=== PATIENT | male | born 1950 | race Caucasian/White ===

== ENCOUNTER 2016-07-11 22:30 | Inpatient (IN) | payer MEDICARE, OTHER ==
[~2016-07-11] VITALS: Ht 175.3 cm; Wt 91.4 kg
[~2016-07-11 22:30] MED LIST: ASPI81TA82 PO; CARV12.52 PO; FURO10S PO; HYDR100T2 PO; LEVA500T PO; LEVO.025 PO; METR-1 PO; MULTCAP14 PO; TRUSMIS52; Z.0.WHEELELR; ZOCO40TA PO; [UNRECOGNIZED DRUG - CODE] SQ
[2016-07-11 22:32] VITALS: BP 182/106; PULSE 71; RESP 16; TEMP 97.8; O2SAT 96
[2016-07-11 23:27] VITALS: BP 181/93; PULSE 89; RESP 18; O2SAT 92
[2016-07-11] MEDS ORDERED: CALC667T PO (23:40)
[2016-07-11] MEDS ORDERED: CARV25TA PO (23:40)
[2016-07-11] MEDS ORDERED: LEVO25TA4 PO (23:40)
[2016-07-11] MEDS ORDERED: SIMV20TA PO (23:40)
[2016-07-11] MEDS ORDERED: RANI1TAB5 PO (23:40)
[2016-07-11] MEDS ORDERED: DIAL800T PO (23:40)
[2016-07-11] MEDS ORDERED: VITA100036 PO (23:40)
[2016-07-11] MEDS ORDERED: ASPI1TAB69 PO (23:40)
[2016-07-12] VITALS (9 sets, daily range): BP systolic 103–179; BP diastolic 56–91; PULSE 60–84; RESP 18–22; TEMP 97.2–98; O2SAT 93–99
[2016-07-12] MEDS ORDERED: SODIUM CHLORIDE 0.9% FLUSH 10 ML FLUSH IVF PRN (00:15)
[2016-07-12 00:21] LABS: AUTOMATED NEUTROPHIL # 6.8 TH/MM3 (1.8-7.7); BASOPHIL # 0.1 TH/MM3 (0-0.2); EOSINOPHIL # 0.4 TH/MM3 (0-0.4); EOSINOPHIL % 3.8 % (0.0-4.0); HEMO FLAGS DIFF FINAL; LYMPH % 14.7 % (9.0-44.0); LYMPHOCYTE # 1.4 TH/MM3 (1.0-4.8); MEAN CELL VOLUME 90.2 FL (80.0-100.0); MEAN CORPUSCULAR HEMOGLOBIN 29.4 PG (27.0-34.0); MEAN CORPUSCULAR HGB CONC 32.6 % (32.0-36.0); MONO % 9.2 % (0.0-8.0); NEUT % 71.3 % (16.0-70.0); PLATELET COUNT 191 TH/MM3 (150-450); RED BLOOD COUNT 3.21 MIL/MM3 (4.50-5.90); RED CELL DISTRIBUTION WIDTH 15.5 % (11.6-17.2); WHITE BLOOD COUNT 9.5 TH/MM3 (4.0-11.0)
[2016-07-12 00:45] LABS: ALT (GPT) 21 U/L (12-78); ANION GAP 12 MEQ/L (5-15); AST (GOT) 18 U/L (15-37); BICARBONATE 28.9 MEQ/L (21.0-32.0); BLOOD UREA NITROGEN 71 MG/DL (7-18); CHLORIDE 96 MEQ/L (98-107); GLOMERULAR FILTRATION RATE 4 ML/MIN (>89); SODIUM (NA) 137 MEQ/L (136-145)
[2016-07-12 00:47] LABS: ALKALINE PHOSPHATASE 89 U/L (45-117); TOTAL BILIRUBIN ADULT 0.4 MG/DL (0.2-1.0)
--- NOTE | 2016-07-12 00:49 | PD ---
HPI Chief Complaint: Lump, Cyst, Hernia Time Seen by Provider: 23:33 Travel History International Travel<30 days: No Contact w/Intl Traveler<30days: No Traveled to known affect area: No History of Present Illness HPI This is a 66-year-old male who is a peritoneal dialysis patient who presents to the emergency department with increasing swelling and pain in his scrotum and penis is been going on for 2 days, constant, moderate severity. He says yesterday he went to do dialysis and put in 2000 cc of diasylate and his yield was only 800 cc. Ever since then he's had increasing pain and swelling in his scrotum. He says that earlier this year he had a bilateral inguinal hernia repair and prior to that his symptoms of been very similar. He says he has been short of breath for one month which has been increasing and he has had a nonproductive cough which seems to be getting worse. He is here vacationing from [place] work for 5 weeks. PFSH Past Medical History Anemia: Yes Asthma: No Autoimmune Disease: No Anxiety: No Depression: No Heart Rhythm Problems: No Cancer: No Cardiovascular Problems: Yes High Cholesterol: Yes Chemotherapy: No Chest Pain: No Congestive Heart Failure: Yes COPD: No Diabetes: Yes (diet controlled) Patient Takes Glucophage: No Genitourinary: Yes Hypertension: Yes Immune Disorder: No Kidney Stones: No Musculoskeletal: No Neurologic: No Psychiatric: No Reproductive: No Respiratory: Yes Radiation Therapy: No Renal Failure: Yes Sickle Cell Disease: No Sleep Apnea: No Thyroid Disease: Yes (hypothyroidism) Influenza Vaccination: No Past Surgical History Abdominal Surgery: Yes (BILATERAL INGUINAL HERNIA) Cardiac Surgery: Yes (MITRAL VALVE REPAIR) Tonsillectomy: Yes Social History Alcohol Use: No Tobacco Use: No Substance Use: No Allergies-Medications (Allergen,Severity, Reaction): Coded Allergies: No Known Allergies (Unverified , 07/11/16) Reported Meds & Prescriptions Reported Meds & Active Scripts Active Reported Dialyvite 800/Ultra D (Multiple Vitamins W/ Minerals) 1 Tab 1 Tab PO DAILY Calcium Acetate (Phosphate Binder) 667 Mg Tab 2,668 Mg PO TID Ranitidine 75 (Ranitidine HCl) 75 Mg Tab 150 Mg PO HS Take 30 to 60 minutes before eating food or drinking beverages that cause heartburn. Vitamin D3 (Cholecalciferol) 1,000 Unit Cap 1,000 Units PO DAILY Levothyroxine (Levothyroxine Sodium) 25 Mcg Tab 25 Mcg PO HS Simvastatin 20 Mg Tab 20 Mg PO DAILY Carvedilol 25 Mg Tab 25 Mg PO BID Aspirin 81 Mg Tabdr 81 Mg PO DAILY Review of Systems Except as stated in HPI: all other systems reviewed are Neg Physical Exam Narrative GENERAL:Well appearing, no acute distress SKIN: Focused skin assessment warm and dry. HEAD: Atraumatic. Normocephalic. EYES: Pupils equal and round. No injection or drainage. ENT: Moist mucous membranes NECK: Trachea midline. CARDIOVASCULAR: Regular rate and rhythm. No murmur appreciated. RESPIRATORY: Tachypneic, coarse breath sounds in the bases bilaterally GASTROINTESTINAL: Abdomen soft, non-tender, nondistended. : Marked edema of the scrotum and penis MUSCULOSKELETAL: No obvious deformities. NEUROLOGICAL: Awake and alert. No obvious cranial nerve deficits. Moving all extremities. PSYCHIATRIC: Appropriate mood and affect; insight and judgment normal. Data Data Last Documented VS Vital Signs Date Time Temp Pulse Resp B/P Pulse Ox O2 Delivery O2 Flow Rate FiO2 07/12/16 01:01 84 22 171/91 96 Nasal Cannula 2 07/11/16 22:32 97.8 Orders Complete Blood Count With Diff (07/12/16 00:02) Comprehensive Metabolic Panel (07/12/16 00:02) B-Type Natriuretic Peptide (07/12/16 00:02) D-Dimer (07/12/16 00:02) Iv Access Insert/Monitor (07/12/16 00:02) Electrocardiogram (07/12/16 00:02) Ecg Monitoring (07/12/16 00:02) Oximetry (07/12/16 00:02) Oxygen Administration (07/12/16 00:02) Sodium Chloride 0.9% Flush (Ns Flush) (07/12/16 00:15) Us Testicles W Doppler (07/12/16 ) Chest, Single Ap (07/12/16 ) Ventilation & Perfusion Scan (07/12/16 ) Admit To Inpatient (07/12/16 ) Vital Signs (Adult) Q4H (07/12/16 01:32) Activity Oob With Assistance (07/12/16 01:32) Retail Delivery Driver / Telemetry .CONTINUOUS (07/12/16 01:32) Intake + Output MADISYN.QSHIFT (07/12/16 01:32) Diet Renal (07/12/16 Breakfast) Sodium Chloride 0.9% Flush (Ns Flush) (07/12/16 01:45) Sodium Chloride 0.9% Flush (Ns Flush) (07/12/16 09:00) Basic Metabolic Panel (Bmp) (07/13/16 06:00) Complete Blood Count With Diff (07/13/16 06:00) Pt Request For Service (07/12/16 01:32) Case Management Consult (07/12/16 01:32) Naloxone Inj (Narcan Inj) (07/12/16 01:45) Inpatient Certification (07/12/16 ) Consult Nephrology (07/12/16 ) Admit Order (Ed Use Only) (07/12/16 01:39) Labs Laboratory Tests Test 07/12/16 00:00 White Blood Count 9.5 TH/MM3 Red Blood Count 3.21 MIL/MM3 Hemoglobin 9.4 GM/DL Hematocrit 29.0 % Mean Corpuscular Volume 90.2 FL Mean Corpuscular Hemoglobin 29.4 PG Mean Corpuscular Hemoglobin 32.6 % Concent Red Cell Distribution Width 15.5 % Platelet Count 191 TH/MM3 Mean Platelet Volume 8.6 FL Neutrophils (%) (Auto) 71.3 % Lymphocytes (%) (Auto) 14.7 % Monocytes (%) (Auto) 9.2 % Eosinophils (%) (Auto) 3.8 % Basophils (%) (Auto) 1.0 % Neutrophils # (Auto) 6.8 TH/MM3 Lymphocytes # (Auto) 1.4 TH/MM3 Monocytes # (Auto) 0.9 TH/MM3 Eosinophils # (Auto) 0.4 TH/MM3 Basophils # (Auto) 0.1 TH/MM3 CBC Comment DIFF FINAL Differential Comment D-Dimer Quantitative (PE/DVT) 3.32 MG/L FEU Sodium Level 137 MEQ/L Potassium Level 4.0 MEQ/L Chloride Level 96 MEQ/L Carbon Dioxide Level 28.9 MEQ/L Anion Gap 12 MEQ/L Blood Urea Nitrogen 71 MG/DL Creatinine 12.34 MG/DL Estimat Glomerular Filtration 4 ML/MIN Rate Random Glucose 101 MG/DL Calcium Level 9.4 MG/DL Total Bilirubin 0.4 MG/DL Aspartate Amino Transf 18 U/L (AST/SGOT) Alanine Aminotransferase 21 U/L (ALT/SGPT) Alkaline Phosphatase 89 U/L B-Type Natriuretic Peptide 3305 PG/ML Total Protein 6.5 GM/DL Albumin 2.7 GM/DL MDM Medical Decision Making Medical Screen Exam Complete: Yes Emergency Medical Condition: Yes Interpretation(s) Afebrile, no tachycardia, hypertensive Anemia Creatinine is 12 BNP is 3300 Last 24 hours Impressions Scrotum Ultrasound 07/12/16 0000 Signed Impressions: Service Date/Time: Tuesday, July 12, 2016 01:05 - CONCLUSION: 1. Small simple hydroceles bilaterally with diffuse thickening of the scrotum. 2. Questionable bilateral inguinal hernias. Kenneth Valderrama Jr., MD Chest X-Ray 07/12/16 0000 Signed Impressions: Service Date/Time: Tuesday, July 12, 2016 00:23 - CONCLUSION: Bilateral pleural effusions and bilateral pulmonary infiltrates. Kenneth Valderrama Jr., MD Differential Diagnosis Volume overload, pulmonary embolism, pneumonia, congestive heart failure, inguinal hernias, scrotal edema Narrative Course This is a 66-year-old male who presented to the emergency department primarily concerned because he thought his inguinal hernias had recurred and he has increasing edema in the scrotum and penis. Patient was placed on a monitor and an IV was established. He was found to be hypoxic and tachypneic, 88% on room air. Chest x-ray demonstrates bilateral pleural effusions. D-dimer was 3. VQ scan will be obtained. BNP is 3300. I think his presentation is consistent with volume overload. I suspect both his increasing scrotal edema and his respiratory symptoms are related to volume overload. I think he requires admission and nephrology consultation. I spoke to Dr. Avendano overnight and he recommended we diuresis the patient with 80 of IV Lasix and the peritoneal dialysis nurses will see him in the morning. Physician Communication Physician Communication Discussed with Dr. Avendano and Dr. Barker Diagnosis Primary Impression: Volume overload Qualified Code: E87.70 - Hypervolemia, unspecified hypervolemia type Admitting Information Admitting Physician Requests: Admit Meron Hall MD July 12, 2016 00:49
--- NOTE | 2016-07-12 01:09 | RADRPT ---
EXAM DATE/TIME: 07/12/2016 00:23 [facility] COMPARISON: No previous studies available for comparison. INDICATIONS : Abdominal pain. MEDICAL HISTORY : Hernia SURGICAL HISTORY : Valve repair. ENCOUNTER: Initial ACUITY: 1 day PAIN SCORE: 0/10 LOCATION: Bilateral chest FINDINGS: A single portable frontal view the chest shows bilateral pulmonary infiltrates. This is most pronounc ed within the right lung base. Small bilateral pleural effusions. Heart is normal in size. Prosthetic heart valve. Median sternotomy wires. CONCLUSION: Bilateral pleural effusions and bilateral pulmonary infiltrates. Kenneth Valderrama Jr., MD on July 12, 2016 at 1:06 Board Certified Radiologist. This report was verified electronically.
[2016-07-12] MEDS ORDERED: NALOXONE HCL 0.4 MG/ML AMP IV PRN (01:45)
[2016-07-12] MEDS ORDERED: SODIUM CHLORIDE 0.9% FLUSH 10 ML FLUSH IV FLUSH PRN ×2 (01:45→09:15)
--- NOTE | 2016-07-12 01:56 | RADRPT ---
EXAM DATE/TIME: 07/12/2016 01:05 [facility] COMPARISON: No previous studies available for comparison. INDICATIONS : Bilateral testicle swelling. MEDICAL HISTORY : Hypertension. Diabetic. Kidney failure. Peritoneal dialysis. Hernia. SURGICAL HISTORY : Tonsillectomy. Mitral valve repair. Inguinal hernia repair 02/2016. ENCOUNTER: Initial ACUITY: 1 day PAIN SCORE: 0/10 LOCATION: Bilateral testicle. MEASUREMENTS: RIGHT TESTICLE: 4.2 x 2.8 x 2.8cm LEFT TESTICLE: 3.0 x 3.2 x 2.5cm FINDINGS: RIGHT TESTICLE: Homogeneous echotexture without intra or extratesticular mass. Blood flow is symmetric and within no rmal limits. A small simple hydrocele. No varicocele. Epididymis is within normal limits. Questionab le hernia. LEFT TESTICLE: Homogeneous echotexture without intra or extratesticular mass. Blood flow is symmetric and within no rmal limits. Small simple hydrocele. No varicocele. Epididymis is within normal limits. Questionable hernia. SCROTUM: Diffuse thickening of the scrotum. CONCLUSION: 1. Small simple hydroceles bilaterally with diffuse thickening of the scrotum. 2. Questionable bilateral inguinal hernias. Kenneth Valderrama Jr., MD on July 12, 2016 at 1:51 Board Certified Radiologist. This report was verified electronically.
[2016-07-12] MEDS ORDERED: FUROSEMIDE 100 MG/10 ML VIAL IV PUSH ONE (02:15)
--- NOTE | 2016-07-12 03:08 | RADRPT ---
EXAM DATE/TIME: 07/12/2016 02:27 [facility] COMPARISON: CHEST SINGLE AP, July 12, 2016, 0:23. INDICATIONS : Shortness of breath for 1 month and pain and swelling in scrotum. DOSE: 8.7 mCi Tc99m MAA IV 1.2 mCi Tc99m DTPA aerosol MEDICAL HISTORY : Congestive hearrt failure. Hypercholesterolemia. Renal failure, chronic. Hypertension. SURGICAL HISTORY : Inguinal hernia repair. Tonsillectomy. ENCOUNTER: Initial ACUITY: 1 month PAIN SCALE: 0/10 LOCATION: chest TECHNIQUE: Following five minutes of tidal breathing of DTPA aerosol, planar images of the lungs were performed in eight projections. The patient was then injected with MAA, and eight-view perfusion scan was perf ormed. FINDINGS: There is a homogeneous pattern of aerosol delivery to the periphery of both lungs. No focal ventilat ory defects are seen. The perfusion lung scan demonstrates a homogenous pattern of uptake in both lungs. No segmental or s ubsegmental defects are seen. CONCLUSION: Normal examination. Kenneth Valderrama Jr., MD on July 12, 2016 at 3:06 Board Certified Radiologist. This report was verified electronically.
--- NOTE | 2016-07-12 04:19 | HHI.HP ---
HPI Service [facility] Primary Care Physician Non-Staff Admission Diagnosis volume overload Diagnoses: Travel History International Travel<30 Days: No Contact w/Intl Traveler <30 Da: No Traveled to Known Affected Are: No History of Present Illness History from patient, his , ER physician communication, and review of medical record. Patient reported that he has end-stage renal disease on peritoneal dialysis. He is visiting here from [place] and arrived here about 3 weeks ago. He states he was doing prior to the dialysis at home with his as usual but Tuesday night, they noted that he was only getting about 858 mL of fluid when he should be getting out 2000 mL. They waited for about an hour and tried to fix the catheter but finally had 2 bypass it. In the morning, patient noted that his scrotum was swelling. No significant pain in the scrotum but reports of pressure build up there. He also reports her shortness of breath. Denies any chest tightness or pains. Denies fever. Reports of cough which is dry cough with no sputum production for the past 2 weeks. Patient states that about 3 weeks ago when he was on autotrain coming here from [place], he also missed his pertinent dialysis and similar episode of shortness of breath happened then as well. Apart from the above, patient denies any recent fevers/nausea/vomiting/diarrhea. He denies any blood in his stool or urine. He reports he still makes urine. Denies any syncopal episodes or dizziness. Review of Systems Except as stated in HPI: all other systems reviewed are Neg Past Family Social History Past Medical History dm- diet controlled htn- off meds now due to low bp with dialysis chf esrd on peritoneal dialysis lui barrios foot bilaterally Past Surgical History foot surgery - 2 yrs ago - right hernia repair - feb 2016- 4 yrs ago, mitral valve repair - NOT replacement- was only on coumadin for couple of months post surgery tonsilectomy Allergies: Coded Allergies: No Known Allergies (Unverified , 07/12/16) Family History none Social History no smoking no drinking 7 yrs now, but was social drinker before no drugs still driving visiting here from [place] - came down the day after Easter - 06/23/16 Physical Exam Vital Signs Vital Signs Date Time Temp Pulse Resp B/P Pulse Ox O2 Delivery O2 Flow Rate FiO2 07/12/16 03:36 73 20 166/88 99 Nasal Cannula 2 07/12/16 01:01 84 22 171/91 96 Nasal Cannula 2 07/12/16 00:58 88 Nasal Cannula 2 07/11/16 23:27 89 18 181/93 92 Room Air 07/11/16 22:32 97.8 71 16 182/106 96 Room Air Physical Exam GENERAL: This is a well-nourished, well-developed patient, in no apparent distress. SKIN: No rashes, ecchymoses or lesions. Cool and dry. Pallor present HEAD: Atraumatic. Normocephalic. No temporal or scalp tenderness. EYES: No scleral icterus. No injection or drainage. ENT: Nose without bleeding, purulent drainage or septal hematoma. Airway patent. NECK: Trachea midline. No JVD CARDIOVASCULAR: Regular rate and rhythm without murmurs, gallops, or rubs. RESPIRATORY: Bilateral basilar rales up to mid lung. GASTROINTESTINAL: Abdomen soft, non-tender, nondistended.No guarding. MUSCULOSKELETAL: Extremities without clubbing, cyanosis, or edema. No calf tenderness. Bilateral Charcot Katherin foot syndrome NEUROLOGICAL: Awake and alert. Motor and sensory grossly within normal limits. Normal speech. Laboratory Laboratory Tests Test 07/12/16 00:00 White Blood Count 9.5 Red Blood Count 3.21 Hemoglobin 9.4 Hematocrit 29.0 Mean Corpuscular Volume 90.2 Mean Corpuscular Hemoglobin 29.4 Mean Corpuscular Hemoglobin 32.6 Concent Red Cell Distribution Width 15.5 Platelet Count 191 Mean Platelet Volume 8.6 Neutrophils (%) (Auto) 71.3 Lymphocytes (%) (Auto) 14.7 Monocytes (%) (Auto) 9.2 Eosinophils (%) (Auto) 3.8 Basophils (%) (Auto) 1.0 Neutrophils # (Auto) 6.8 Lymphocytes # (Auto) 1.4 Monocytes # (Auto) 0.9 Eosinophils # (Auto) 0.4 Basophils # (Auto) 0.1 CBC Comment DIFF FINAL Differential Comment D-Dimer Quantitative (PE/DVT) 3.32 Sodium Level 137 Potassium Level 4.0 Chloride Level 96 Carbon Dioxide Level 28.9 Anion Gap 12 Blood Urea Nitrogen 71 Creatinine 12.34 Estimat Glomerular Filtration 4 Rate Random Glucose 101 Calcium Level 9.4 Total Bilirubin 0.4 Aspartate Amino Transf 18 (AST/SGOT) Alanine Aminotransferase 21 (ALT/SGPT) Alkaline Phosphatase 89 B-Type Natriuretic Peptide 3305 Total Protein 6.5 Albumin 2.7 Result Diagram: 07/12/16 0000 07/12/16 Imaging Last 48 hours Impressions Scrotum Ultrasound 07/12/16 Signed Impressions: Service Date/Time: Tuesday, July 12, 2016 01:05 - CONCLUSION: 1. Small simple hydroceles bilaterally with diffuse thickening of the scrotum. 2. Questionable bilateral inguinal hernias. Kenneth Valderrama Jr., MD Lung Scan-VQ Nuclear Medicine 07/12/16 Signed Impressions: Service Date/Time: Tuesday, July 12, 2016 02:27 - CONCLUSION: Normal examination. Kenneth Valderrama Jr., MD Chest X-Ray 07/12/16 Signed Impressions: Service Date/Time: Tuesday, July 12, 2016 00:23 - CONCLUSION: Bilateral pleural effusions and bilateral pulmonary infiltrates. Kenneth Valderrama Jr., MD Assessment and Plan Assessment and Plan Impression: Fluid overloadsecondary to inadequate fluid removal by peritoneal dialysis dm- diet controlled htn- off meds now due to low bp with dialysis chf esrd on peritoneal dialysis charbrian barrios foot bilaterally Plan: Lasix 80 mg IV 1 dose now on. Input/output. Monitor blood pressure closely. Resume home meds. Nephrology was consulted. Will dialyze patient with the peritoneal dialysis in a.m. Follow-up recommendations. DVT prophylaxison heparin. Discussed Condition With patient, , ER MD, pt's nurse Physician Certification 2 Midnight Certification Type: Admission for Inpatient Services Order for Inpatient Services The services are ordered in accordance with Medicare regulations or non- Medicare payer requirements, as applicable. In the case of services not specified as inpatient-only, they are appropriately provided as inpatient services in accordance with the 2-midnight benchmark. Estimated LOS (days): 2 days is the estimated time the patient will need to remain in the hospital, assuming treatment plan goals are met and no additional complications. Post-Hospital Plan: Home Radha Barker MD July 12, 2016 04:19
[2016-07-12] MEDS: HEPARIN SODIUM - SQ 10,000 UNITS/ML VIAL SQ SCH ×3 (06:21→20:51)
[2016-07-12] MEDS: SODIUM CHLORIDE 0.9% FLUSH 10 ML FLUSH IV FLUSH SCH ×2 (09:02→20:52)
[2016-07-12] MEDS: CARVEDILOL 12.5 MG TAB PO SCH ×2 (09:02→20:50)
[2016-07-12] MEDS: PRAVASTATIN SOD 40 MG TAB PO SCH (09:02)
[2016-07-12] MEDS: ASPIRIN EC 81 MG TABEC PO SCH (09:02)
[2016-07-12] MEDS: CALCIUM ACETATE 667 MG CAP PO SCH ×3 (09:03→17:09)
[2016-07-12] MEDS ORDERED: HEPARIN SODIUM - IV 10,000 UNITS/10 ML VIAL XX PRN (10:00)
--- NOTE | 2016-07-12 11:15 | EKG ---
Date Performed: 07/12/2016 Time Performed: 00:55:34 PTAGE: 66 years EKG: Sinus rhythm MODERATE INTRAVENTRICULAR CONDUCTION DELAY NONSPECIFIC T-WAVE ABNORMALITY ABNORMAL ECG NO PREVIOUS TRACING DOCTOR: Franck Vieyra Interpretating Date/Time 07/12/2016 11:13:04
--- NOTE | 2016-07-12 13:32 | MB ---
cc: VIJI ALCOCER MD DATE OF CONSULTATION: 07/12/2016 REASON FOR CONSULTATION End-stage renal disease on peritoneal dialysis, came with fluid overload status. HISTORY OF PRESENT ILLNESS This is a 66-year-old male with past medical history of hypertension, diabetes mellitus, ischemic heart disease, congestive heart failure, end-stage renal disease on peritoneal dialysis, came to the hospital because of fluid retention, swelling and shortness of breath. 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 The patient has been on peritoneal dialysis for a little more than a year. He has been living in [facility] and visiting here. On Tuesday night he noticed that he has no ultrafiltration and his machine was alarming and he noticed more swelling of his legs and scrotal area and shortness of breath on Tuesday which was gradually getting worse so he decided to come to the hospital. He denies any nausea or vomiting. He does not have any constipation. His bowel movement is normal. The fluid was clear according to him. He has mild cough. There is no chest pain. No palpitation. His appetite is normal. He noticed that he has more swelling of his scrotal area and also his legs. He passed very small amount of urine. There is no history of fever. No chest pain or palpitations. PAST MEDICAL HISTORY 1. Hypertension. 2. Diabetes mellitus. 3. Ischemic heart disease. 4. Congestive heart failure. 5. Chronic anemia. 6. End-stage renal disease on peritoneal dialysis. PAST SURGICAL HISTORY 1. Bilateral inguinal hernia repair. 2. History of PD catheter placement for surgery 2 years ago. 3. Mitral valve repair 4 years ago. 4. Tonsillectomy. REVIEW OF SYSTEMS The patient denies any history of fever. No sore throat. He has cough and worsening shortness of breath especially on exertion. There is no chest pain. No palpitation. No headache, dizziness and no abdominal pain. No history of diarrhea or constipation. No nausea, vomiting. Appetite is normal. The fluid has been clear. He noticed more swelling of his scrotal area and his legs. There is no blood in the PD fluid and it is not cloudy. SOCIAL HISTORY The patient is . There is no history of smoking or alcoholism. FAMILY HISTORY Family history is noncontributory. ALLERGIES NO KNOWN DRUG ALLERGIES. MEDICATIONS Currently he is on: 1. Coreg 25 mg b.i.d. 2. Aspirin 81 mg once a day. 3. Pravachol 40 mg daily. 4. Synthroid 25 mcg h.s. 5. Pepcid 20 mg q.h.s. 6. Aspirin 5000 units q. 8-hours. 7. PhosLo 2668 mg t.i.d. 8. Narcan as needed. PHYSICAL EXAMINATION GENERAL: On examination the patient is awake, alert. He is not in acute distress. VITAL SIGNS: His last blood pressure is 179/88, temperature is 98, oxygen saturation 99%. HEENT: Pupils equally reacting to light. Nonicteric sclerae. Conjunctivae pale. NECK: Supple. JVD slightly elevated. LUNGS: The patient has bilateral decreased air entry with basilar rales and scattered wheezing. HEART: S1, S2, regular rhythm. ABDOMEN: Abdomen is distended, soft, lax. The PD catheter is in place. There is no tenderness. The scrotal area is swollen. There is no redness or tenderness. EXTREMITIES: He has bilateral 1+ leg edema. INVESTIGATION WBC count is 9.5, hemoglobin 9.4, platelet count of 191, sodium is 137. Potassium 4.0, chloride 96, bicarb 28.9, BUN 71, creatinine 12.34, AST, ALT normal, alkaline phosphatase normal. Albumin is 2.7, total protein is 6.5. BNP is 3305. D-dimer is 3.3. IMAGING STUDIES The patient had ultrasound of the scrotal area done which shows small simple hydrocele bilaterally, questionable bilateral inguinal hernias. VQ scan of the lung was done which showed normal examination. Chest x-ray was done which shows bilateral pleural effusion and bilateral pulmonary infiltrate. ASSESSMENT/PLAN 1. Fluid overload status. 2. End-stage renal disease on peritoneal dialysis. 3. Hypertension. 4. Anemia. 5. Generalized edema. The patient has generalized edema and this pleural effusion and scrotal swelling. Will try to get more fluid out by doing peritoneal dialysis and will do one exchange in the daytime. I have already called the dialysis nurse to do one exchange as soon as possible so we can see if he has any ultrafiltration. If there is a problem with ultrafiltration then he will need to do the workup to find out if there is any problem with the catheter. He was given Lasix but he did not pass much urine. Seems like his kidney function is not that great. If things do not improve and the peritoneal catheter is not working, then he probably will need temporary hemodialysis until PD catheter can be fixed. Thank you for the consultation and I will follow the patient while he is in the hospital. MD JOHNNY Gomez/TLL /9:43 AM /1:01 PM
--- NOTE | 2016-07-12 14:21 | HHI.PR ---
Subjective Remarks Follow-up renal failure, fluid overload. The patient states that his dyspnea seems to be improving. No chest pain. Objective Vitals Vital Signs Date Time Temp Pulse Resp B/P Pulse Ox O2 Delivery O2 Flow Rate FiO2 07/12/16 12:00 97.5 60 18 167/77 93 07/12/16 08:00 70 07/12/16 08:00 Nasal Cannula 2.50 07/12/16 08:00 98.0 71 18 179/88 99 07/12/16 04:04 Nasal Cannula 2.00 07/12/16 04:04 74 07/12/16 04:00 97.5 76 18 173/82 95 07/12/16 03:36 73 20 166/88 99 Nasal Cannula 2 07/12/16 01:01 84 22 171/91 96 Nasal Cannula 2 07/12/16 00:58 88 Nasal Cannula 2 07/11/16 23:27 89 18 181/93 92 Room Air 07/11/16 22:32 97.8 71 16 182/106 96 Room Air I/O 07/11/16 07/11/16 07/11/16 07/12/16 07/12/16 07/12/16 07:00 15:00 23:00 07:00 15:00 23:00 Intake Total 100 ml Balance 100 ml Intake Oral 100 ml # Voids 0 # Bowel Movements 0 Result Diagram: 07/12/16 0000 07/12/16 0000 Imaging Last Impressions Scrotum Ultrasound 07/12/16 0000 Signed Impressions: Service Date/Time: Tuesday, July 12, 2016 01:05 - CONCLUSION: 1. Small simple hydroceles bilaterally with diffuse thickening of the scrotum. 2. Questionable bilateral inguinal hernias. Kenneth Valderrama Jr., MD Lung Scan- Nuclear Medicine 07/12/16 0000 Signed Impressions: Service Date/Time: Tuesday, July 12, 2016 02:27 - CONCLUSION: Normal examination. Kenneth Valderrama Jr., MD Chest X-Ray 07/12/16 0000 Signed Impressions: Service Date/Time: Tuesday, July 12, 2016 00:23 - CONCLUSION: Bilateral pleural effusions and bilateral pulmonary infiltrates. Kenneth Valderrama Jr., MD Objective Remarks General: No acute distress. Heart: Regular rate and rhythm. No murmur. Lungs: Bibasilar rales. Breathing is nonlabored. Abdomen: Soft, nontender, nondistended. Extremities: No lower extremity edema. Psych: Alert and oriented. Procedures None Urinary Catheter: No Vascular Central Line Catheter: No A/P Problem List: (1) Volume overload ICD Code: E87.70 Status: Acute (2) Chronic renal failure ICD Code: N18.9 Status: Acute (3) Diabetes mellitus type 2, diet-controlled ICD Code: E11.9 Status: Chronic Assessment and Plan 1. Fluid overload: Secondary to inadequate fluid removal by peritoneal dialysis. Patient was given Lasix. Monitor strict input/output. Appreciate nephrology recommendations. Continue peritoneal dialysis. 2. Diabetes mellitus: Diet-controlled. 3. Hypertension: Not currently on antihypertensive medications. 4. End-stage renal disease: Continue peritoneal dialysis per nephrology. Problem Qualifiers (1) Volume overload: Qualified Code: E87.70 - Hypervolemia, unspecified hypervolemia type Chapito Marks MD July 12, 2016 14:21
[2016-07-12] MEDS: FAMOTIDINE 20 MG TAB PO SCH (20:50)
[2016-07-12] MEDS: LEVOTHYROXINE SODIUM 25 MCG TAB PO SCH (20:50)
[2016-07-13] VITALS: BP 150/84; PULSE 78; RESP 18; TEMP 97.5; O2SAT 96
[2016-07-13] MEDS: HEPARIN SODIUM - SQ 10,000 UNITS/ML VIAL SQ SCH ×3 (05:14→21:36)
[2016-07-13 06:20] VITALS: BP 145/97; PULSE 62; RESP 18; TEMP 97.3; O2SAT 99
[2016-07-13 07:27] LABS: AUTOMATED NEUTROPHIL # 4.3 TH/MM3 (1.8-7.7); BASOPHIL # 0.1 TH/MM3 (0-0.2); EOSINOPHIL # 0.3 TH/MM3 (0-0.4); EOSINOPHIL % 5.1 % (0.0-4.0); HEMATOCRIT 25.2 % (39.0-51.0); HEMO FLAGS DIFF FINAL; LYMPH % 20.7 % (9.0-44.0); LYMPHOCYTE # 1.4 TH/MM3 (1.0-4.8); MEAN CELL VOLUME 89.8 FL (80.0-100.0); MEAN CORPUSCULAR HEMOGLOBIN 30.1 PG (27.0-34.0); MEAN CORPUSCULAR HGB CONC 33.5 % (32.0-36.0); NEUT % 62.2 % (16.0-70.0); PLATELET COUNT 143 TH/MM3 (150-450); RED BLOOD COUNT 2.81 MIL/MM3 (4.50-5.90); RED CELL DISTRIBUTION WIDTH 15.3 % (11.6-17.2); WHITE BLOOD COUNT 6.9 TH/MM3 (4.0-11.0)
[2016-07-13 07:58] LABS: BICARBONATE 26.6 MEQ/L (21.0-32.0); POTASSIUM 3.7 MEQ/L (3.5-5.1)
[2016-07-13 08:00] VITALS: BP 151/78; PULSE 63; PULSE 67; RESP 18; TEMP 97.7; O2SAT 96
[2016-07-13] MEDS: ASPIRIN EC 81 MG TABEC PO SCH (09:11)
[2016-07-13] MEDS: CALCIUM ACETATE 667 MG CAP PO SCH ×3 (09:11→17:26)
[2016-07-13] MEDS: CARVEDILOL 12.5 MG TAB PO SCH ×2 (09:11→21:35)
[2016-07-13] MEDS: PRAVASTATIN SOD 40 MG TAB PO SCH (09:11)
[2016-07-13] MEDS: SODIUM CHLORIDE 0.9% FLUSH 10 ML FLUSH IV FLUSH SCH ×2 (09:12→21:36)
--- NOTE | 2016-07-13 10:48 | HHI.PR ---
Subjective Remarks Follow up fluid overload, renal failure. Patient continues to report scrotal swelling. Also has dyspnea with ambulating to the bathroom. Denies chest pain. Objective Vitals Vital Signs Date Time Temp Pulse Resp B/P Pulse Ox O2 Delivery O2 Flow Rate FiO2 07/13/16 06:20 97.3 62 18 145/97 99 07/13/16 04:00 Nasal Cannula 2.00 07/13/16 00:00 97.5 78 18 150/84 96 07/13/16 00:00 Nasal Cannula 2.00 07/12/16 20:03 67 07/12/16 20:00 Nasal Cannula 2.00 07/12/16 20:00 97.2 70 20 131/73 97 07/12/16 16:00 97.4 72 18 103/56 93 07/12/16 12:00 97.5 60 18 167/77 93 I/O 07/12/16 07/12/16 07/12/16 07/13/16 07/13/16 07/13/16 07:00 15:00 23:00 07:00 15:00 23:00 Intake Total 100 ml 360 ml 240 ml 120 ml Output Total 0 ml 240 ml Balance 100 ml 360 ml 240 ml 120 ml -240 ml Intake Oral 100 ml 360 ml 240 ml 120 ml Output Urine Total 0 ml Peritoneal Fluid 240 ml # Voids 0 1 0 # Bowel Movements 0 0 0 Result Diagram: 07/13/16 0445 07/13/16 0445 Imaging Last Impressions Scrotum Ultrasound 07/12/16 0000 Signed Impressions: Service Date/Time: Tuesday, July 12, 2016 01:05 - CONCLUSION: 1. Small simple hydroceles bilaterally with diffuse thickening of the scrotum. 2. Questionable bilateral inguinal hernias. Kenneth Valderrama Jr., MD Lung Scan-V Nuclear Medicine 07/12/16 0000 Signed Impressions: Service Date/Time: Tuesday, July 12, 2016 02:27 - CONCLUSION: Normal examination. Kenneth Valderrama Jr., MD Chest X-Ray 07/12/16 0000 Signed Impressions: Service Date/Time: Tuesday, July 12, 2016 00:23 - CONCLUSION: Bilateral pleural effusions and bilateral pulmonary infiltrates. Kenneth Valderrama Jr., MD Objective Remarks General: No acute distress. Heart: Regular rate and rhythm. No murmur. Lungs: Bibasilar rales. Breathing is nonlabored. Abdomen: Soft, nontender, nondistended. Extremities: No lower extremity edema. Psych: Alert and oriented. : Significant scrotal edema. Procedures None Urinary Catheter: No Vascular Central Line Catheter: No A/P Problem List: (1) Volume overload ICD Code: E87.70 Status: Acute (2) Chronic renal failure ICD Code: N18.9 Status: Acute (3) Diabetes mellitus type 2, diet-controlled ICD Code: E11.9 Status: Chronic Assessment and Plan 1. Fluid overload: Secondary to inadequate fluid removal by peritoneal dialysis. Patient was given Lasix. Monitor strict input/output. Appreciate nephrology recommendations. Continue peritoneal dialysis. Still with significant scrotal edema. 2. Diabetes mellitus: Diet-controlled. 3. Hypertension: Not currently on antihypertensive medications. 4. End-stage renal disease: Continue peritoneal dialysis per nephrology. 5. DVT prophylaxis: Heparin. Problem Qualifiers (1) Volume overload: Qualified Code: E87.70 - Hypervolemia, unspecified hypervolemia type Chapito Marks MD July 13, 2016 10:48
--- NOTE | 2016-07-13 11:00 | HHI.NPPN ---
Subjective General Problems: Anemia, Edema, Hypertension Renal Failure: End Stage Renal Disease History of Present Illness 66-year-old male with past medical history of hypertension, diabetes mellitus, ischemic heart disease, congestive heart failure, end-stage renal disease on peritoneal dialysis, came to the hospital because of fluid retention, swelling and shortness of breath. Additional Remarks Patient is alert, sitting on chair, still has SOB,m with nasal cannula. Review of Systems General Constitutional: Fatigue Respiratory Lungs: SOB, Cough, Wheeze Cardiovascular Cardiac: Edema, ABRAHAM Objective Data Data 07/12/16 07/13/16 19:00 07:00 Intake Total 360 ml 360 ml Output Total 0 ml Balance 360 ml 360 ml Intake Oral 360 ml 360 ml Output Urine Total 0 ml # Voids 1 0 # Bowel Movements 0 0 Vital Signs Date Time Temp Pulse Resp B/P Pulse Ox O2 Delivery O2 Flow Rate FiO2 07/13/16 06:20 97.3 62 18 145/97 99 07/13/16 04:00 Nasal Cannula 2.00 07/13/16 00:00 97.5 78 18 150/84 96 07/13/16 00:00 Nasal Cannula 2.00 07/12/16 20:03 67 07/12/16 20:00 Nasal Cannula 2.00 07/12/16 20:00 97.2 70 20 131/73 97 07/12/16 16:00 97.4 72 18 103/56 93 07/12/16 12:00 97.5 60 18 167/77 93 -: 07/13/16 0445 07/13/16 0445 Physical Exam General Appearance: No Acute Distress, Comfortable Eyes Eye Exam: Pupils Equal Throat Throat Exam: Oral Mucosa Short & Moist Neck Neck Exam: Neck Supple Pulmonary Resp Exam: Breath Sounds Equal, No Distress, Rhonchi, Decreased Bases, Diminished Breath Sounds Cardiology CV Exam: Regular, Normal Sinus Rhythm Gastrointestinal/Abdomen GI Exam: Soft, Non-Tender, Bowel Sounds Present, Distended Extremeties Extremities Exam: Moderate Edema, Pitting Edema, Dependent Edema Neurologic Neuro Exam: Alert, Awake, Oriented Psychiatric Psych Exam: Appropriate Responses Assessment/Plan Assessment Summary: Anemia of CKD, Fluid/Volume Overload, End Stage Renal Disease Problem List: (1) Chronic anemia (2) Diabetes mellitus type 2, diet-controlled (3) Volume overload (4) End stage management Plan Patient has minimal UF with PD. Still has edema and SOB. BP is elevated, on Coreg. Will use 4.25% solution along with 2.5% today. Try to get ,more UF. Has no constipation and normal BM. Problem Qualifiers (1) Volume overload: Qualified Code: E87.70 - Hypervolemia, unspecified hypervolemia type Shanthi Chaves MD July 13, 2016 11:00
[2016-07-13 12:00] VITALS: BP 153/94; PULSE 67; RESP 18; TEMP 98; O2SAT 97
[2016-07-13 19:36] VITALS: PULSE 66
[2016-07-13 20:00] VITALS: BP 172/91; PULSE 67; RESP 20; TEMP 98; O2SAT 99
[2016-07-13] MEDS: FAMOTIDINE 20 MG TAB PO SCH (21:35)
[2016-07-13] MEDS: LEVOTHYROXINE SODIUM 25 MCG TAB PO SCH (21:35)
[2016-07-14] VITALS (9 sets, daily range): BP systolic 110–188; BP diastolic 70–96; PULSE 62–127; RESP 18–20; TEMP 97.4–97.9; O2SAT 94–99
[2016-07-14 05:20] LABS: BASOPHIL # 0.1 TH/MM3 (0-0.2); BASOPHIL % 1.1 % (0.0-2.0); EOSINOPHIL # 0.3 TH/MM3 (0-0.4); EOSINOPHIL % 4.1 % (0.0-4.0); HEMATOCRIT 26.1 % (39.0-51.0); HEMO FLAGS DIFF FINAL; LYMPH % 13.1 % (9.0-44.0); LYMPHOCYTE # 1.1 TH/MM3 (1.0-4.8); MEAN CELL VOLUME 89.8 FL (80.0-100.0); MEAN CORPUSCULAR HGB CONC 33.4 % (32.0-36.0); MONO % 9.6 % (0.0-8.0); NEUT % 72.1 % (16.0-70.0); PLATELET COUNT 144 TH/MM3 (150-450); RED CELL DISTRIBUTION WIDTH 14.9 % (11.6-17.2); WHITE BLOOD COUNT 8.3 TH/MM3 (4.0-11.0)
[2016-07-14 05:42] LABS: POTASSIUM 3.7 MEQ/L (3.5-5.1)
[2016-07-14] MEDS: HEPARIN SODIUM - SQ 10,000 UNITS/ML VIAL SQ SCH ×3 (06:15→20:47)
[2016-07-14] MEDS: hydrALAZINE HCL 20 MG/ML VIAL IV PUSH PRN ×2 (06:16→18:50)
[2016-07-14] MEDS: CARVEDILOL 12.5 MG TAB PO SCH ×2 (08:41→20:47)
[2016-07-14] MEDS: CALCIUM ACETATE 667 MG CAP PO SCH ×3 (08:41→17:26)
[2016-07-14] MEDS: PRAVASTATIN SOD 40 MG TAB PO SCH (08:41)
[2016-07-14] MEDS: SODIUM CHLORIDE 0.9% FLUSH 10 ML FLUSH IV FLUSH SCH ×2 (08:41→20:47)
[2016-07-14] MEDS: ASPIRIN EC 81 MG TABEC PO SCH (08:41)
--- NOTE | 2016-07-14 11:46 | HHI.NPPN ---
Subjective General Problems: Anemia, Edema, Hypertension Renal Failure: End Stage Renal Disease History of Present Illness 66-year-old male with past medical history of hypertension, diabetes mellitus, ischemic heart disease, congestive heart failure, end-stage renal disease on peritoneal dialysis, came to the hospital because of fluid retention, swelling and shortness of breath. Additional Remarks Patient is alert, feeling better after more UF from PD, breathing improving. Review of Systems General Constitutional: Fatigue Respiratory Lungs: SOB, Cough, Wheeze Cardiovascular Cardiac: Edema, ABRAHAM Objective Data Data 07/13/16 07/14/16 19:00 07:00 Intake Total 480 ml 240 ml Output Total 240 ml Balance 240 ml 240 ml Intake Oral 480 ml 240 ml Peritoneal Fluid 240 ml # Voids 2 3 # Bowel Movements 2 1 Vital Signs Date Time Temp Pulse Resp B/P Pulse Ox O2 Delivery O2 Flow Rate FiO2 07/14/16 08:45 Nasal Cannula 2.00 07/14/16 08:02 97.8 127 20 113/73 96 07/14/16 04:00 97.4 62 20 188/85 98 07/14/16 00:00 97.4 63 20 163/88 99 07/13/16 20:00 Nasal Cannula 2.00 07/13/16 20:00 98.0 67 20 172/91 99 07/13/16 19:36 66 07/13/16 12:00 98.0 67 18 153/94 97 -: 07/14/16 0420 07/14/16 0420 Physical Exam General Appearance: No Acute Distress, Comfortable Eyes Eye Exam: Pupils Equal Throat Throat Exam: Oral Mucosa [place] & Moist Neck Neck Exam: Neck Supple Pulmonary Resp Exam: Breath Sounds Equal, No Distress, Rhonchi, Decreased Bases, Diminished Breath Sounds Cardiology CV Exam: Regular, Normal Sinus Rhythm Gastrointestinal/Abdomen GI Exam: Soft, Non-Tender, Bowel Sounds Present, Distended Extremeties Extremities Exam: Moderate Edema, Pitting Edema, Dependent Edema Neurologic Neuro Exam: Alert, Awake, Oriented Psychiatric Psych Exam: Appropriate Responses Assessment/Plan Assessment Summary: Anemia of CKD, Fluid/Volume Overload, End Stage Renal Disease Problem List: (1) Chronic anemia (2) Diabetes mellitus type 2, diet-controlled (3) Volume overload (4) End stage management Plan Patient has increase UF with PD, got 2.1 liters out. Still has edema and SOB. BP is elevated, on Coreg. Continue 4.25% solution along with 2.5% today. Try to get ,more UF. Still requiring O2, not on home O2. Problem Qualifiers (1) Volume overload: Qualified Code: E87.70 - Hypervolemia, unspecified hypervolemia type Shanthi Chaves MD July 14, 2016 11:45
--- NOTE | 2016-07-14 14:10 | HHI.PR ---
Subjective Remarks Follow-up for respiratory failure secondary to being volume overloaded Patient complain about his nose feeling dry. He stated that his breathing has improved drastically. Denies any cough. Patient's daughter and are at the bedside. He has no other complaints. Objective Vitals Vital Signs Date Time Temp Pulse Resp B/P Pulse Ox O2 Delivery O2 Flow Rate FiO2 07/14/16 08:45 Nasal Cannula 2.00 07/14/16 08:02 97.8 127 20 113/73 96 07/14/16 07:56 69 07/14/16 04:00 97.4 62 20 188/85 98 07/14/16 00:00 97.4 63 20 163/88 99 07/13/16 20:00 Nasal Cannula 2.00 07/13/16 20:00 98.0 67 20 172/91 99 07/13/16 19:36 66 I/O 07/13/16 07/13/16 07/13/16 07/14/16 07/14/16 07/14/16 07:00 15:00 23:00 07:00 15:00 23:00 Intake Total 120 ml 480 ml 0 ml 240 ml Output Total 240 ml 2179 ml Balance 120 ml 240 ml 0 ml 240 ml -2179 ml Intake Oral 120 ml 480 ml 0 ml 240 ml Peritoneal Fluid 240 ml 2179 ml # Voids 0 2 2 1 # Bowel Movements 0 2 1 Result Diagram: 07/14/1641907/14/16419 Objective Remarks GENERAL: in NAD CARDIOVASCULAR: Regular rate and rhythm without murmurs, gallops, or rubs. RESPIRATORY: Breath sounds equal bilaterally. No accessory muscle use. GASTROINTESTINAL: Abdomen soft, non-tender, nondistended. Procedures None Medications and IVs Current Medications Sodium Chloride (NS Flush) 2 ml UNSCH PRN IVF FLUSH AFTER USING IV ACCESS; Start 07/12/16 at 00:15; Stop 07/12/16 at 01:36; Status DC Sodium Chloride (NS Flush) 2 ml UNSCH PRN IV FLUSH FLUSH AFTER USING IV ACCESS ; Start 07/12/16 at 01:45 Sodium Chloride (NS Flush) 2 ml BID IV FLUSH Last administered on 07/14/16t 08: 41; Start 07/12/16 at 09:00 Naloxone HCl (Narcan Inj) 0.4 mg UNSCH PRN IV SEE LABEL COMMENTS; Start at 01:45 Furosemide (Lasix Inj) 80 mg ONCE ONCE IV PUSH Last administered on 07/12/16 02:20; Start 07/12/16 at 02:15; Stop 07/12/16 at 02:16; Status DC Aspirin (Ecotrin Ec) 81 mg DAILY PO Last administered on 07/14/16 08:41; Start 07/12/16 at 09:00 Calcium Acetate (Phoslo) 2,668 mg TIDAC PO Last administered on 07/14/16 12:28 ; Start 07/12/16 at 08:00 Carvedilol (Coreg) 25 mg BID PO Last administered on 07/14/16 08:41; Start 07/12/16 at 09:00 Levothyroxine Sodium (Synthroid) 25 mcg HS PO Last administered on 07/13/16 21: 35; Start 07/12/16 at 21:00 Famotidine (Pepcid) 20 mg HS PO Last administered on 07/13/16 21:35; Start 07/12 at 21:00 Pravastatin Sodium (Pravachol) 40 mg DAILY PO Last administered on 07/14/16 08 :41; Start 07/12/16 at 09:00 Heparin Sodium (Porcine) (Heparin Inj) 5,000 units Q8HR SQ Last administered on 07/14/16 06:15; Start 07/12/16 at 06:00 Heparin Sodium (Porcine) (Heparin Inj) 1,000 units WITH DIALYSIS PRN XX SEE LABEL COMMENTS; Start 07/12/16 at 10:00 Sodium Chloride (NS Flush) 10 ml UNSCH PRN IV FLUSH SEE LABEL COMMENTS; Start 07/12/16 at 09:15 Hydralazine HCl (Apresoline Inj) 10 mg Q30M PRN IV PUSH bp>160./90 Last administered on 07/14/16 06:16; Start 07/14/16 at 06:00 A/P Problem List: (1) Volume overload ICD Code: E87.70 Status: Acute (2) Chronic renal failure ICD Code: N18.9 Status: Acute (3) Diabetes mellitus type 2, diet-controlled ICD Code: E11.9 Status: Chronic Assessment and Plan Acute respiratory failure with hypoxia -Secondary to being volume overloaded. Improving. Patient continues to require oxygen. -He will need continually dialysis to remove fluid to help with respiratory status. Fluid overload: -Secondary to inadequate fluid removal by peritoneal dialysis. Patient was given Lasix. Monitor strict input/output. Appreciate nephrology recommendations. Continue peritoneal dialysis. Diabetes mellitus: - Diet-controlled. Hypertension: - Not currently on antihypertensive medications. End-stage renal disease: -Continue peritoneal dialysis per nephrology. DVT prophylaxis: Heparin. Discharge Planning Patient continued to require oxygen. He needs continual fluid removal. Problem Qualifiers (1) Volume overload: Qualified Code: E87.70 - Hypervolemia, unspecified hypervolemia type Jada Greenberg MD July 14, 2016 14:10
[2016-07-14] MEDS ORDERED: SODIUM CHLORIDE 0.65% NASAL DRP/SPRY 30 ML BTL EACH NARE PRN (14:15)
[2016-07-14] MEDS: LEVOTHYROXINE SODIUM 25 MCG TAB PO SCH (20:47)
[2016-07-14] MEDS: FAMOTIDINE 20 MG TAB PO SCH (20:47)
[2016-07-15] VITALS (9 sets, daily range): BP systolic 133–177; BP diastolic 71–91; PULSE 65–126; RESP 18–20; TEMP 97.3–98.3; O2SAT 93–98
[2016-07-15] MEDS: HEPARIN SODIUM - SQ 10,000 UNITS/ML VIAL SQ SCH ×3 (05:07→20:54)
[2016-07-15] MEDS: ASPIRIN EC 81 MG TABEC PO SCH (08:46)
[2016-07-15] MEDS: SODIUM CHLORIDE 0.9% FLUSH 10 ML FLUSH IV FLUSH SCH ×2 (08:46→20:54)
[2016-07-15] MEDS: CARVEDILOL 12.5 MG TAB PO SCH ×2 (08:46→20:54)
[2016-07-15] MEDS: PRAVASTATIN SOD 40 MG TAB PO SCH (08:46)
[2016-07-15] MEDS: CALCIUM ACETATE 667 MG CAP PO SCH ×3 (08:46→18:27)
--- NOTE | 2016-07-15 10:38 | HHI.PR ---
Subjective Remarks f/u for volume overloaded. patient has no complaints. he denied any CP, SOB, palpitations or lightheadedness or dizziness. patient still on oxygen but has not been weaned. His heart rate went up at the end of dialysis. remains afebrile. patient stated he wants to go home today. his nurse is at the bedside during the interview. Objective Vitals Vital Signs Date Time Temp Pulse Resp B/P Pulse Ox O2 Delivery O2 Flow Rate FiO2 07/15/16 10:16 126 133/82 07/15/16 08:35 125 07/15/16 08:02 98.3 66 19 160/73 93 07/15/16 07:38 Nasal Cannula 2.00 07/15/16 04:00 97.9 66 18 152/71 95 07/15/16 00:00 97.3 65 19 154/85 98 07/14/16 20:02 97.6 125 19 110/70 94 07/14/16 20:00 Nasal Cannula 2.00 07/14/16 20:00 70 07/14/16 18:51 65 165/96 07/14/16 16:02 97.9 70 18 172/95 97 07/14/16 12:02 97.6 62 18 145/72 95 I/O 07/14/16 07/14/16 07/14/16 07/15/16 07/15/16 07/15/16 07:00 15:00 23:00 07:00 15:00 23:00 Intake Total 240 ml 480 ml 280 ml 240 ml Output Total 2179 ml 300 ml 2584 ml Balance 240 ml -1699 ml -20 ml 240 ml -2584 ml Intake Oral 240 ml 480 ml 280 ml 240 ml Output Urine Total 300 ml Peritoneal Fluid 2179 ml 2584 ml # Voids 1 3 0 # Bowel Movements 1 0 0 Result Diagram: 07/14/160 07/14/160 Objective Remarks GENERAL: in NAD CARDIOVASCULAR: tachy 110 and rhythm without murmurs, gallops, or rubs. RESPIRATORY: Breath sounds equal bilaterally. No accessory muscle use. GASTROINTESTINAL: Abdomen soft, non-tender, nondistended. Procedures None Medications and IVs Current Medications Sodium Chloride (NS Flush) 2 ml UNSCH PRN IVF FLUSH AFTER USING IV ACCESS; Start 07/12/16 at 00:15; Stop 07/12/16 at 01:36; Status DC Sodium Chloride (NS Flush) 2 ml UNSCH PRN IV FLUSH FLUSH AFTER USING IV ACCESS ; Start 07/12/16 at 01:45 Sodium Chloride (NS Flush) 2 ml BID IV FLUSH Last administered on 07/15/16 08: 46; Start 07/12/16 at 09:00 Naloxone HCl (Narcan Inj) 0.4 mg UNSCH PRN IV SEE LABEL COMMENTS; Start at 01:45 Furosemide (Lasix Inj) 80 mg ONCE ONCE IV PUSH Last administered on 07/12/16 02:20; Start 07/12/16 at 02:15; Stop 07/12/16 at 02:16; Status DC Aspirin (Ecotrin Ec) 81 mg DAILY PO Last administered on 07/15/16 08:46; Start 07/12/16 at 09:00 Calcium Acetate (Phoslo) 2,668 mg TIDAC PO Last administered on 07/15/16 08:46 ; Start 07/12/16 at 08:00 Carvedilol (Coreg) 25 mg BID PO Last administered on 07/15/16 08:46; Start 07/12/16 at 09:00 Levothyroxine Sodium (Synthroid) 25 mcg HS PO Last administered on 07/14/16 20 :47; Start 07/12/16 at 21:00 Famotidine (Pepcid) 20 mg HS PO Last administered on 07/14/16 20:47; Start 07/12/16 at 21:00 Pravastatin Sodium (Pravachol) 40 mg DAILY PO Last administered on 07/15/16 08 :46; Start 07/12/16 at 09:00 Heparin Sodium (Porcine) (Heparin Inj) 5,000 units Q8HR SQ Last administered on 07/15/16 05:07; Start 07/12/16 at 06:00 Heparin Sodium (Porcine) (Heparin Inj) 1,000 units WITH DIALYSIS PRN XX SEE LABEL COMMENTS; Start 07/12/16 at 10:00 Sodium Chloride (NS Flush) 10 ml UNSCH PRN IV FLUSH SEE LABEL COMMENTS; Start 07/12/16 at 09:15 Hydralazine HCl (Apresoline Inj) 10 mg Q30M PRN IV PUSH bp>160./90 Last administered on 07/14/16 18:50; Start 07/14/16 at 06:00 Sodium Chloride ([place] Saline 0.65% [facility]/ [place]) 2 drop UNSCH PRN EACH NARE dryiness of nasal canal Last administered on 07/14/16 17:26; Start at 14:15 A/P Problem List: (1) Volume overload ICD Code: E87.70 Status: Acute (2) Chronic renal failure ICD Code: N18.9 Status: Acute (3) Diabetes mellitus type 2, diet-controlled ICD Code: E11.9 Status: Chronic Assessment and Plan Acute respiratory failure with hypoxia -Secondary to being volume overloaded. Improving. d.w nurse to see if patient can be weaned off of oxygen. -He will need continually dialysis to remove fluid to help with respiratory status. Fluid overload: -Secondary to inadequate fluid removal by peritoneal dialysis. Patient was given Lasix. Monitor strict input/output. Appreciate nephrology recommendations. Continue peritoneal dialysis. Diabetes mellitus: - Diet-controlled. Hypertension: - Not currently on antihypertensive medications. sinus tachycardia -most likely due to dialysis. asymptomatic. -will get EKG and monitor. -should improve on own. End-stage renal disease: -Continue peritoneal dialysis per nephrology. DVT prophylaxis: Heparin. Discharge Planning Patient continued to require oxygen will need to wean off. If we are okay to get patient off of oxygen and tachycardia resolved most likely can be discharge. Problem Qualifiers (1) Volume overload: Qualified Code: E87.70 - Hypervolemia, unspecified hypervolemia type Jada Greenberg MD July 15, 2016 10:38
--- NOTE | 2016-07-15 11:41 | HHI.NPPN ---
Subjective General Problems: Anemia, Edema, Hypertension Renal Failure: End Stage Renal Disease History of Present Illness 66-year-old male with past medical history of hypertension, diabetes mellitus, ischemic heart disease, congestive heart failure, end-stage renal disease on peritoneal dialysis, came to the hospital because of fluid retention, swelling and shortness of breath. Additional Remarks Patient is alert, feeling better after more UF from PD, breathing improving, edema is better. Review of Systems General Constitutional: Fatigue Respiratory Lungs: SOB, Cough, Wheeze Cardiovascular Cardiac: Edema, ABRAHAM Objective Data Data 07/14/16 07/15/16 18:59 06:59 Intake Total 480 ml 520 ml Output Total 2179 ml 300 ml Balance -1699 ml 220 ml Intake Oral 480 ml 520 ml Output Urine Total 300 ml Peritoneal Fluid 2179 ml # Voids 3 0 # Bowel Movements 1 0 Vital Signs Date Time Temp Pulse Resp B/P Pulse Ox O2 Delivery O2 Flow Rate FiO2 07/15/16 10:16 126 133/82 07/15/16 08:35 125 07/15/16 08:02 98.3 66 19 160/73 93 07/15/16 07:38 Nasal Cannula 2.00 07/15/16 04:00 97.9 66 18 152/71 95 07/15/16 00:00 97.3 65 19 154/85 98 07/14/16 20:02 97.6 125 19 110/70 94 07/14/16 20:00 Nasal Cannula 2.00 07/14/16 20:00 70 07/14/16 18:51 65 165/96 07/14/16 16:02 97.9 70 18 172/95 97 07/14/16 12:02 97.6 62 18 145/72 95 -: 07/14/16 0420 07/14/16 0420 Physical Exam General Appearance: No Acute Distress, Comfortable Eyes Eye Exam: Pupils Equal Throat Throat Exam: Oral Mucosa [place] & Moist Neck Neck Exam: Neck Supple Pulmonary Resp Exam: Breath Sounds Equal, No Distress, Rhonchi, Decreased Bases, Diminished Breath Sounds Cardiology CV Exam: Regular, Normal Sinus Rhythm Gastrointestinal/Abdomen GI Exam: Soft, Non-Tender, Bowel Sounds Present, Distended Extremeties Extremities Exam: Moderate Edema, Pitting Edema, Dependent Edema Neurologic Neuro Exam: Alert, Awake, Oriented Psychiatric Psych Exam: Appropriate Responses Assessment/Plan Assessment Summary: Anemia of CKD, Fluid/Volume Overload, End Stage Renal Disease Problem List: (1) Chronic anemia (2) Diabetes mellitus type 2, diet-controlled (3) Volume overload (4) End stage management Plan Patient has increase UF with PD, got 2.5 liters out. edema and SOB improving. BP is better, HR increase some time, on Coreg. If not better consider cardiology. Continue 4.25% solution along with 2.5% today. Try to get ,more UF. To get more PT and get off O2. Problem Qualifiers (1) Volume overload: Qualified Code: E87.70 - Hypervolemia, unspecified hypervolemia type Shanthi Chaves MD July 15, 2016 11:41
--- NOTE | 2016-07-15 14:08 | EKG ---
Date Performed: 07/15/2016 Time Performed: 12:21:34 PTAGE: 66 years EKG: BASELINE ARTIFACT PRESENT. Unclear underlying tachycardia MODERATE INTRAVENTRICULAR CONDUCT ION DELAY ABNORMAL QRS-T ANGLE ABNORMAL ECG COMPARED TO PRIOR ELECTROCARDIOGRAM, Rate has increased. PREVIOUS TRACING : 07/12/2016 00.55 DOCTOR: Matheus Lozada Interpretating Date/Time 07/15/2016 14:07:58
[2016-07-15] MEDS: LEVOTHYROXINE SODIUM 25 MCG TAB PO SCH (20:54)
[2016-07-15] MEDS: FAMOTIDINE 20 MG TAB PO SCH (20:54)
[2016-07-16] VITALS: BP 139/70; PULSE 62; RESP 18; TEMP 98.2; O2SAT 98
[2016-07-16 04:00] VITALS: BP 159/85; PULSE 64; RESP 18; TEMP 97.7; O2SAT 97
[2016-07-16] MEDS: HEPARIN SODIUM - SQ 10,000 UNITS/ML VIAL SQ SCH ×2 (05:16→14:00)
[2016-07-16 08:00] VITALS: BP 147/78; PULSE 85; RESP 20; TEMP 97.8; O2SAT 95
[2016-07-16] MEDS: CARVEDILOL 12.5 MG TAB PO SCH (08:32)
[2016-07-16] MEDS: PRAVASTATIN SOD 40 MG TAB PO SCH (08:33)
[2016-07-16] MEDS: SODIUM CHLORIDE 0.9% FLUSH 10 ML FLUSH IV FLUSH SCH (08:33)
[2016-07-16] MEDS: CALCIUM ACETATE 667 MG CAP PO SCH ×2 (08:33→12:01)
[2016-07-16] MEDS: ASPIRIN EC 81 MG TABEC PO SCH (08:33)
[2016-07-16 12:00] VITALS: BP 95/60; PULSE 129; RESP 20; TEMP 97.7; O2SAT 93
[2016-07-16 16:00] VITALS: BP 106/61; PULSE 129; RESP 22; TEMP 97.6; O2SAT 93
[2016-07-16 17:16] VITALS: BP 98/58; PULSE 83; RESP 18; TEMP 98.2; O2SAT 95
--- NOTE | 2016-07-16 17:17 | HHI.DCPOC ---
Discharge Care Plan Diagnosis: (1) Volume overload (2) Chronic renal failure (3) Respiratory failure with hypoxia Goals to Promote Your Health * To prevent worsening of your condition and complications * To maintain your health at the optimal level Directions to Meet Your Goals Take your medications as prescribed Follow your dietary instruction Follow activity as directed Keep your appointments as scheduled Take your immunizations and boosters as scheduled If your symptoms worsen call your PCP, if no PCP go to Urgent Care Center or Emergency Room Smoking is Dangerous to Your Health. Avoid second hand smoke Call the 24-hour hour crisis hotline for domestic abuse at Jada Greenberg MD July 16, 2016 17:17
--- NOTE | 2016-07-17 23:44 | HHI.NPPN ---
Subjective General Problems: Anemia, Edema, Hypertension Renal Failure: End Stage Renal Disease History of Present Illness 66-year-old male with past medical history of hypertension, diabetes mellitus, ischemic heart disease, congestive heart failure, end-stage renal disease on peritoneal dialysis, came to the hospital because of fluid retention, swelling and shortness of breath. Additional Remarks This is the note for 07/16/16, a late entry. Patient is alert, breathing is better, no abd.pain. Review of Systems General Constitutional: Fatigue Respiratory Lungs: SOB, Cough, Wheeze Cardiovascular Cardiac: Edema, ABRAHAM Objective Data Data 07/16/16 07/17/16 19:00 07:00 Intake Total 480 ml Balance 480 ml Intake Oral 480 ml # Voids 3 # Bowel Movements 1 -: 07/14/16 0420 07/14/16 0420 Physical Exam General Appearance: No Acute Distress, Comfortable Eyes Eye Exam: Pupils Equal Throat Throat Exam: Oral Mucosa [place] & Moist Neck Neck Exam: Neck Supple Pulmonary Resp Exam: Breath Sounds Equal, No Distress, Rhonchi, Decreased Bases, Diminished Breath Sounds Cardiology CV Exam: Regular, Normal Sinus Rhythm Gastrointestinal/Abdomen GI Exam: Soft, Non-Tender, Bowel Sounds Present, Distended Extremeties Extremities Exam: Moderate Edema, Pitting Edema, Dependent Edema Neurologic Neuro Exam: Alert, Awake, Oriented Psychiatric Psych Exam: Appropriate Responses Assessment/Plan Assessment Summary: Anemia of CKD, Fluid/Volume Overload, End Stage Renal Disease Problem List: (1) Chronic anemia (2) Diabetes mellitus type 2, diet-controlled (3) Volume overload (4) End stage management Plan Patient has increase UF with PD, got 2.5 liters out. edema and SOB improving. BP is better, Has been in negative fluid balance with PD. Told to continue 2.5% and 1.5% at home. Told to restrict salt and fluid intake. Also to use 2.5% both if has more edema or SOB. Problem Qualifiers (1) Volume overload: Qualified Code: E87.70 - Hypervolemia, unspecified hypervolemia type Shanthi Chaves MD July 17, 2016 23:44
--- NOTE | 2016-07-18 21:29 | HHI.DS ---
Discharge Summary Admission Date July 12, 2016 at 01:41 Discharge Date: July 16, 2016 Admitting Diagnosis volume overload (1) Respiratory failure with hypoxia ICD Code: J96.91 Diagnosis: Principal (2) Volume overload ICD Code: E87.70 Diagnosis: Principal (3) ESRD on peritoneal dialysis ICD Code: N18.6 Diagnosis: Principal (4) Diabetes mellitus type 2, diet-controlled ICD Code: E11.9 Diagnosis: Secondary Procedures None Brief History - From Admission History from patient, his , here physician communication, and review of medical record. Patient reported that he has end-stage renal disease on peritoneal dialysis. He is visiting here from [place] and arrived here about 3 weeks ago. He states he was doing prior to the dialysis at home with his as usual but Tuesday night, they noted that he was only getting about 858 mL of fluid when he should be getting out 2000 mL. They waited for about an hour and tried to fix the catheter but finally had 2 bypass it. In the morning, patient noted that his scrotum was swelling. No significant pain in the scrotum but reports of pressure build up there. He also reports her shortness of breath. Denies any chest tightness or pains. Denies fever. Reports of cough which is dry cough with no sputum production for the past 2 weeks. Patient states that about 3 weeks ago when he was on autotrain coming here from [place], he also missed his pertinent dialysis and similar episode of shortness of breath happened then as well. Apart from the above, patient denies any recent fevers/nausea/vomiting/diarrhea. He denies any blood in his stool or urine. He reports he still makes urine. Denies any syncopal episodes or dizziness. CBC/BMP: 07/14/16 0420 07/14/16 042 Imaging Last Impressions Scrotum Ultrasound 07/12/16 0000 Signed Impressions: Service Date/Time: Tuesday, July 12, 2016 01:05 - CONCLUSION: 1. Small simple hydroceles bilaterally with diffuse thickening of the scrotum. 2. Questionable bilateral inguinal hernias. Kenneth Valderrama Jr., MD Lung Scan-[facility] Nuclear Medicine 07/12/16 0000 Signed Impressions: Service Date/Time: Tuesday, July 12, 2016 02:27 - CONCLUSION: Normal examination. Kenneth Valderrama Jr., MD Chest X-Ray 07/12/16 0000 Signed Impressions: Service Date/Time: Tuesday, July 12, 2016 00:23 - CONCLUSION: Bilateral pleural effusions and bilateral pulmonary infiltrates. Kenneth Valderrama Jr., MD PE at Discharge GENERAL: in NAD CARDIOVASCULAR: tachy 110 and rhythm without murmurs, gallops, or rubs. RESPIRATORY: Breath sounds equal bilaterally. No accessory muscle use. GASTROINTESTINAL: Abdomen soft, non-tender, nondistended. Pt update on day of discharge f/u for respiratory failure with hypoxia due to ESRD patient very anxious to go home. Denied any SOB and cough. Denied any CP, palpitations, lightheadedness or dizziness. He stated that he does not need oxygen and requesting nurse to check in oxygen status without oxygen. Otherwise no complaints. Hospital Course Acute respiratory failure with hypoxia -Secondary to being volume overloaded. News Director consulted since symptoms due to being volume overloaded. -patient received aggressive dialysis and was slowly weaned off of oxygen. Fluid overload: -Secondary to inadequate fluid removal by peritoneal dialysis. -see above. Diabetes mellitus: - Diet-controlled. Hypertension: - Not currently on antihypertensive medications. sinus tachycardia -most likely due to dialysis. asymptomatic. -EKG reviewed sinus tachy due to aggressive dialysis. -resolved on own quickly. End-stage renal disease: -Continue peritoneal dialysis per nephrology. Pt Condition on Discharge: Good Discharge Disposition: Discharge Home Discharge Time: <= 30 minutes Discharge Instructions DIET: Follow Instructions for: Heart Healthy Diet, Renal Failure Diet Activities you can perform: Regular-No Restrictions Follow up Referrals: Nephrology - 1 Week PCP Follow-up - 1 Week Continued Medications: Aspirin (Aspirin) 81 Mg Tabdr 81 MG PO DAILY TAB Calcium Acetate (Phosphate Binder) (Calcium Acetate (Phosphate Binder)) 667 Mg Tab 2668 MG PO TID Hyperphosphatemia #360 Ref 0 TAB Carvedilol (Carvedilol) 25 Mg Tab 25 MG PO BID #60 Ref 0 TAB Cholecalciferol (Vitamin D3) 1,000 Unit Cap 1000 UNITS PO DAILY Nutritional Supplement #1 Ref 0 BOTTLE Levothyroxine (Levothyroxine) 25 Mcg Tab 25 MCG PO HS Thyroid #30 Ref 0 TAB Multiple Vitamins W/ Minerals (Dialyvite 800/Ultra D) 1 Tab 1 TAB PO DAILY Ranitidine (Ranitidine 75) 75 Mg Tab 150 MG PO HS Take 30 to 60 minutes before eating food or drinking beverages that cause heartburn. Heartburn Ref 0 TAB Simvastatin (Simvastatin) 20 Mg Tab 20 MG PO DAILY Cholesterol Management #30 Ref 0 TAB Jada Greenberg MD July 18, 2016 21:29
== END 2016-07-16 18:10 | disposition home or self-care (01) | DRG 640 ==
LOC: NEPC 22:30 → NEDA 07-12 01:41 → N04A 07-12 03:43
PROVIDERS: ADMIT Hospitalist; ATTEND Hospitalist
PROC: 3E1M39Z Irrigation of Peritoneal Cavity using Dialysate, Percutaneous Approach (ICD-10-PCS; principal; 2016-07-12)
DX: E87.79 Other fluid overload (principal); J96.01 Acute respiratory failure with hypoxia; N18.6 End stage renal disease; I12.0 Hypertensive chronic kidney disease with stage 5 chronic kidney disease or end stage renal disease; Z99.2 Dependence on renal dialysis; R00.0 Tachycardia, unspecified; E11.8 Type 2 diabetes mellitus with unspecified complications; D63.1 Anemia in chronic kidney disease; I25.9 Chronic ischemic heart disease, unspecified; I50.9 Heart failure, unspecified; Z79.82 Long term (current) use of aspirin; N50.89 Other specified disorders of the male genital organs; E03.9 Hypothyroidism, unspecified
CPT/HCPCS: 71010; 76870; 78582; 80048; 80053; 83880; 85025; 85379; 90935; 93005; 93975; A9540; A9567; J0360; J1644; J1940